=== PATIENT | male | born 1985 | race Two or more races ===

== ENCOUNTER 2017-03-11 20:01 | Emergency (ER) | payer SELFPAY ==
[~2017-03-11] VITALS: Ht 172.7 cm; Wt 104.3 kg
[2017-03-11 20:27] VITALS: BP 134/86
--- NOTE | 2017-03-11 20:38 | PHYS DOC ---
Adult General Chief Complaint Chief Complaint: LACERATION/AVULSION HPI HPI Patient is a 31 year old male presents to the emergency department with complaints of a laceration to the left index finger. He states she was using hedge trimmers when his finger got caught between the blades. Review of Systems Review of Systems Musculoskeletal: Denies back pain or joint pain, denies loss range of motion [] Integument: Laceration left index finger Current Medications Current Medications Current Medications Medications (Trade) Dose Ordered Sig/Ailin Start Time Stop Time Status Last Admin Dose Admin Bupivacaine HCl (Marcaine 0.5%) 50 ml 1X ONCE 03/11/17 20:45 03/11/17 20:46 DC Allergies Allergies Allergies Coded Allergies Type Severity Reaction Last Updated Verified No Known Drug Allergies 03/11/17 No Physical Exam Physical Exam Constitutional: Well developed, well nourished, no acute distress, non-toxic appearance. [] Skin: Left index finger distal tip with a partial avulsion to the palmar aspect of the distal tip of the finger Extremities: Left index finger full range of motion without difficulty neurovascular intact. EKG EKG [] Radiology/Procedures Radiology/Procedures Left index x-ray reviewed by Dr. Serg Grullon, emergency room physician. No acute bony changes. [] Course & Med Decision Making Course & Med Decision Making Procedure: Left index finger anesthetized per digital block with 0.5% Marcaine. The wound was cleansed with Betadine normal saline copiously irrigated, explored for foreign body noted which are noted. The wound edges were approximated with 5-0 Ethilon #6 simple erupted sutures. Patient tolerated the procedure well. Pertinent Labs and Imaging studies reviewed. (See chart for details) [] Dragon Disclaimer Dragon Disclaimer This electronic medical record was generated, in whole or in part, using a voice recognition dictation system. Departure Departure Impression: Primary Impression: Laceration Disposition: 01 HOME, SELF-CARE Condition: STABLE Referrals: NO PCP (PCP) VIKA GIBSON MD Patient Instructions: Fingertip Laceration Scripts Cephalexin (KEFLEX) 500 Mg Capsule 1 CAP PO TID for 7 Days, #21 CAP Prov: AMBROSIO MORFIN APRN 03/11/17 AMBROSIO MORFIN APRN Mar 11, 2017 20:38
[2017-03-11] MEDS ORDERED: BUPIVACAINE 0.5% 50 ML VIAL. INFIL ONE (20:45)
[2017-03-11] MEDS ORDERED: CEPH-264 PO (21:21)
--- NOTE | 2017-03-12 08:07 | RAD ---
Indication laceration distal tip of the index finger. AP and oblique views of the left hand were obtained as well as a lateral view targeted to the index finger. Soft tissue injury at the tip of the index finger is noted. No acute or significant bony finding is seen. No radiopaque soft tissue foreign body is seen
== END 2017-03-11 22:08 | disposition home or self-care (01) ==
LOC: ER 20:01
DX: S61.211A Laceration without foreign body of left index finger without damage to nail, initial encounter (principal); W23.0XXA Caught, crushed, jammed, or pinched between moving objects, initial encounter; Y93.89 Activity, other specified; Y92.89 Other specified places as the place of occurrence of the external cause; Y99.8 Other external cause status
CPT/HCPCS: 12001; 73140; 99284; J3490

== ENCOUNTER 2017-11-17 22:49 | Emergency (ER) | payer OTHER ==
[2017-11-17] MEDS: HYDROcodone/APAP 5/325MG 1 TAB TABLET PO ×2 (23:55)
== END 2017-11-18 00:31 | disposition home or self-care (01) ==
LOC: ER 11-18 00:31
DX: S82.142A Displaced bicondylar fracture of left tibia, initial encounter for closed fracture (principal); W18.31XA Fall on same level due to stepping on an object, initial encounter; Y93.89 Activity, other specified; Y99.8 Other external cause status; Y92.89 Other specified places as the place of occurrence of the external cause
CPT/HCPCS: 29505; 73562; 73590; 73610; 73700; 99284-25